=== PATIENT | female | born 1970 | race African-American/Black ===

== ENCOUNTER → 2018-09-05 | Outpatient (CLI) | payer MEDICAID | LOC: BARWHC3 14:08 | DX: Z53.9 Procedure and treatment not carried out, unspecified reason (principal) ==

== ENCOUNTER → 2018-10-09 | Outpatient (CLI) | payer MEDICAID ==
[2018-10-09 17:54] VITALS: BP 123/86; PULSE 85; RESP 16; TEMP 97.6; BMI 41.5
--- NOTE | 2018-10-09 18:47 | P.HPBAR ---
Bariatric H&P - History & Physicial H&P Date: 10/09/18 History & Physicial: Visit/CC: initial visit Patient initial contact: Initial weight: 106.311 kg Initial weight in pounds: 234.38 Height: 5 ft 3 in Initial BMI: 41.5 Last weight: Current weight: 106.311 kg Current weight in pounds: 234.38 Current BMI: 41.5 [place] body weight (based on NIH guidelines): 52.163 kg Excess body weight loss: 0.0% The patient is a 47 year-old F who presents for Bariatric Assessment. HPI: She is looking sleeve gastrectomy. Has GERD. She takes medication Zantac, Omeprazole. Gallbladder is out. Her reflux is bad. She drinks mininum amount of water. Food allergies. No lupus, esophageal cancer, or ulcerative colitis. ABDOMEN: ASSESSMENT: 1. Morbid obesity PLAN: 1. [employer] referral to [facility] 2. Copy of EGD and Colonoscopy report 3. Repeat EGD 4. Get labs at the time of EGD. EKG maybe done that day. 5. Irritable bowel syndrome Past Medical History Past Medical History: GERD/Reflux, Hypertension, Sleep Apnea/CPAP/BIPAP History of Any Multi-Drug Resistant Organisms: None Reported Past Surgical History: Breast Surgery, Section, Cholecystectomy Additional Past Surgical History / Comment(s): breast reduction, c section x 2 Past Anesthesia/Blood Transfusion Reactions: No Reported Reaction Past Psychological History: Anxiety Smoking Status: Never smoker Past Alcohol Use History: None Reported Past Drug Use History: None Reported Surgical - Exam Vital Signs Temp Pulse Resp BP 97.6 F 85 16 123/86 10/09/18 17:52 10/09/18 17:52 10/09/18 17:52 10/09/18 17:52 Bariatric Checklist Checklist: Plan: Checklist: EGD: 1. Hiatal hernia: 2. H. Pylori: HgbA1c: Vitamin D: Smoking: Never smoker Primary care physician referral: Psychiatry clearance: Cardiology clearance: Sleep study: Diet journal: VTE risk score: VTE risk level: Rehab needs at discharge:
== END ==
LOC: BARWHC3 15:51
DX: E66.01 Morbid (severe) obesity due to excess calories (principal); Z68.41 Body mass index [BMI] 40.0-44.9, adult; Z79.899 Other long term (current) drug therapy
CPT/HCPCS: 99211

== ENCOUNTER 2018-12-30 06:31 | Day surgery (SDC) | payer MEDICAID ==
[2018-12-25 15:25] VITALS: BMI 42.1
--- NOTE | 2018-12-29 18:21 | P.GSHP ---
History of Present Illness H&P Date: 12/30/18 CHIEF COMPLAINT: GERD HISTORY OF PRESENT ILLNESS: The patient is a 48-year-old female who presents reports gastroesophageal reflux disease. Upper endoscopy was offered for further evaluation and management. PAST MEDICAL HISTORY: Please see list. PAST SURGICAL HISTORY: Please see list. MEDICATIONS: Please see list. ALLERGIES: Please see list. SOCIAL HISTORY: No illicit drug use FAMILY HISTORY: No reports of Crohn disease or ulcerative colitis. REVIEW OF ORGAN SYSTEMS: CONSTITUTIONAL: No reports of fevers or chills. GI: Denies any blood in stools or constipation. PHYSICAL EXAM: VITAL SIGNS: Stable GENERAL: Well-developed and pleasant in no acute distress. HEENT: No scleral icterus. Extraocular movements grossly intact. Moist buccal mucosa. NECK: Supple without lymphadenopathy. CHEST: Unlabored respirations. Equal bilateral excursions. CARDIOVASCULAR: Regular rate and rhythm. Distal 2+ pulses. ABDOMEN: Soft, nondistended. MUSCULOSKELETAL: No clubbing, cyanosis, or edema. ASSESSMENT: 1. Gastroesophageal reflux disease PLAN: 1. Recommend proceeding with an upper endoscopy Past Medical History Past Medical History: GERD/Reflux, Hypertension, Sleep Apnea/CPAP/BIPAP Additional Past Medical History / Comment(s): HYPOGLYCEMIA. USES C -PAP MACHINE History of Any Multi-Drug Resistant Organisms: None Reported Past Surgical History: Breast Surgery, Section, Cholecystectomy Additional Past Surgical History / Comment(s): breast reduction WITH SOME RECONSTRUCTION AFTER. c section x 2 Past Anesthesia/Blood Transfusion Reactions: No Reported Reaction Additional Past Anesthesia/Blood Transfusion Reaction / Comment(s): VASO VAGAL RESPONSE DURING BREAST RECONSTRUCTION Smoking Status: Never smoker - Past Family History Mother Family Medical History: No Reported History Medications and Allergies Home Medications Medication Instructions Recorded Confirmed Type ALPRAZolam [Xanax] 0.25 mg PO DIRECTED 10/02/18 12/25/18 History Multivitamins, Thera [Multivitamin 1 tab PO DAILY 10/02/18 12/25/18 History (formulary)] Ranitidine HCl 150 mg PO DAILY 10/02/18 12/25/18 History amLODIPine [Norvasc] 5 mg PO DAILY 10/02/18 12/25/18 History Allergies Allergy/AdvReac Type Severity Reaction Status Date / Time sulfamethoxazole Allergy Rash/Hives Verified 12/25/18 15:15 [From Bactrim] trimethoprim [From Bactrim] Allergy Rash/Hives Verified 12/25/18 15:15
[~2018-12-30 06:31] MED LIST: LACTATED RINGERS 1,000 ML IV SCH
[2018-12-30 07:20] VITALS: RESP 16; TEMP 97
[2018-12-30] MEDS ORDERED: LIDOCAINE 1% 20 ML VIAL (10MG/ML) FOR IV START INTRADERMA ONE (07:28)
[2018-12-30] MEDS ORDERED: PROPOFOL 10 MG/ML 20 ML VIAL IV ONE (07:29)
[2018-12-30] MEDS ORDERED: KETAMINE 10 MG/ML 20 ML VIAL ONE (07:29)
--- NOTE | 2018-12-30 07:41 | P.PCN ---
Date of Procedure: 12/30/18 Description of Procedure: PREOPERATIVE DIAGNOSIS: Gastroesophageal reflux disease. Morbid obesity. POSTOPERATIVE DIAGNOSIS: Morbid obesity. Gastritis, mild Gastroesophageal reflux disease. Erosive esophagitis OPERATION: Esophagogastroduodenoscopy with biopsies along antrum. SURGEON: Nicol Gama MD ANESTHESIA: MAC. INDICATIONS: The patient is a 48-year-old female who presents with a history of reflux disease. Benefits and risks of the procedure were described. Informed consent was obtained. DESCRIPTION: The patient was brought into the endoscopy suite and laid in the left lateral decubitus position. An Olympus gastroscope was passed along the posterior oropharynx down to the distal esophagus where the squamocolumnar junction was encountered at 36 cm from the incisors. The stomach was entered and no bile reflux was found. Additional findings are listed below. Biopsies with cold forc eps were obtained of the antrum. The first through third portion of the duodenum was examined and unremarkable. Retroflexion of the scope confirmed Hill grade 2 lower esophageal valve. The squamocolumnar junction demonstrated LA grade A erosive esophagitis. The stomach was desufflated. The patient tolerated the procedure well. FINDINGS: Squamocolumnar junction 36 cm from the incisors. Diaphragmatic hiatus at 36 cm. Hill grade 2 lower esophageal valve. LA grade A erosive esophagitis. No active duodenitis. Mild chronic gastritis RECOMMENDATIONS: Upper endoscopy as needed. Plan - Discharge Summary Discharge Rx Participant: No New Discharge Prescriptions: No Action Multivitamins, Thera [Multivitamin (formulary)] 1 tab PO DAILY amLODIPine [Norvasc] 5 mg PO DAILY Ranitidine HCl 150 mg PO DAILY ALPRAZolam [Xanax] 0.25 mg PO DIRECTED Discharge Medication List ALPRAZolam [Xanax] 0.25 mg PO DIRECTED 10/02/18 [History] Multivitamins, Thera [Multivitamin (formulary)] 1 tab PO DAILY 10/02/18 [History] Ranitidine HCl 150 mg PO DAILY 10/02/18 [History] amLODIPine [Norvasc] 5 mg PO DAILY 10/02/18 [History] Follow up Appointment(s)/Referral(s): [facility] [[facility]-STAFF] - 01/29/19 Patient Instructions/Handouts: Gastroesophageal Reflux Disease (DC) Discharge Disposition: HOME SELF-CARE
--- NOTE | 2018-12-30 08:02 | P.PN ---
Progress Note - Text Progress Note Date: 12/30/18 Patient's reports that she continues to have low blood sugars and is concerned for her having surgery. Will need full bariatric panel.
[2018-12-30 08:03] VITALS: BP 122/88; PULSE 70
[2018-12-30 08:34] LABS: HCT 37.6 % (34.0-46.0); HGB 12.3 gm/dL (11.4-16.0); MCH 29.9 pg (25.0-35.0); MCHC 32.7 g/dL (31.0-37.0); MCV 91.5 fL (80.0-100.0); Mean Platelet Volume 7.4; Platelet Count 252 k/uL (150-450); RBC 4.11 m/uL (3.80-5.40); RDW 13.7 % (11.5-15.5); WBC 4.3 k/uL (3.8-10.6)
[2018-12-30 08:57] LABS: ALT 17 U/L (9-52); AST 21 U/L (14-36); African American GFR (CKD) >90 (>60 ml/min/1.73 sqM); Albumin 3.7 g/dL (3.5-5.0); Alkaline Phosphatase 107 U/L (38-126); Anion Gap 3 mmol/L; Blood Urea Nitrogen 11 mg/dL (7-17); Calcium 9.4 mg/dL (8.4-10.2); Carbon Dioxide 31 mmol/L (22-30); Chloride 108 mmol/L (98-107); Cholesterol 194 mg/dL (<200); Glucose 87 mg/dL (74-99); HDL Cholesterol 77 mg/dL (40-60); LDL Cholesterol,Calculated 105 mg/dL (0-99); Potassium 3.8 mmol/L (3.5-5.1); Sodium 142 mmol/L (137-145); Total Bilirubin 0.4 mg/dL (0.2-1.3); Total Protein 6.4 g/dL (6.3-8.2); Triglycerides 58 mg/dL (<150)
[2018-12-30 18:19] LABS: Iron Saturation 22.26 (12.00-45.00)
[2018-12-30 18:28] LABS: Vitamin D 25 Hydroxy 24.4 ng/mL (30.0-100.0)
[2018-12-30 18:31] LABS: Folate, Serum 13.2 ng/mL
[2018-12-30 19:01] LABS: Hemoglobin A1C 5.7 % (4.0-6.0)
== END 2018-12-30 08:15 | disposition home or self-care (01) ==
LOC: ORWHC2ENDO 06:31
PROVIDERS: ATTEND Surgery Plastic and Reconstructive Surgery
DX: K29.50 Unspecified chronic gastritis without bleeding (principal); K21.9 Gastro-esophageal reflux disease without esophagitis; I10 Essential (primary) hypertension; K22.10 Ulcer of esophagus without bleeding; E66.01 Morbid (severe) obesity due to excess calories; G47.33 Obstructive sleep apnea (adult) (pediatric); Z99.89 Dependence on other enabling machines and devices; Z79.899 Other long term (current) drug therapy; Z90.49 Acquired absence of other specified parts of digestive tract; Z88.2 Allergy status to sulfonamides; Z68.41 Body mass index [BMI] 40.0-44.9, adult
CPT/HCPCS: 88305; 84425; 80061; 80053; 82607; 82728; 82746; 83540; 83550; 84443; 85027; 82306; 83036; 43239; J2704

== ENCOUNTER → 2019-01-29 | Outpatient (CLI) | payer MEDICAID ==
[2019-01-29 17:06] VITALS: BP 156/91; PULSE 85; RESP 16; TEMP 98.1; BMI 41.6
--- NOTE | 2019-01-29 17:26 | P.PN ---
Subjective Progress Note Date: 01/29/19 DATE OF SERVICE: 01/29/2019 CHIEF COMPLAINT: Morbid obesity HISTORY OF PRESENT ILLNESS: Katelyn Finch is a 48-year-old female who comes with lifelong morbid obesity. As a result of her morbid obesity, she developed sleep apnea including hypertensive heart disease. She is completed upper endoscopy. She is looking into the sleeve gastrectomy. She has gastroesophageal reflux disease. She also has history of intermittent low blood sugars. At height of 5 feet 3 inches, her ideal body weight is 140 pounds. She comes in 234 pounds, unchanged since her last visit 4 months ago. Her body mass index is 41.5. She is 94 pounds overweight. PAST MEDICAL HISTORY: 1. Morbid obesity due to excess calories 2. Body mass index of 41.5, initial 3. Anxiety 4. Gastroesophageal reflux disease 5. Obstructive sleep apnea 6. Hypertensive heart disease PAST SURGICAL HISTORY: 1. Breast reduction 2. section x 2 3. Cholecystectomy HOME MEDICATIONS: ALLERGIES: Medications and Allergies Home Medications Medication Instructions Recorded Confirmed Type ALPRAZolam [Xanax] 0.25 mg PO DIRECTED 10/02/18 10/02/18 History Multivitamins, Thera [Multivitamin 1 tab PO DAILY 10/02/18 10/02/18 History (formulary)] Ranitidine HCl 150 mg PO DAILY 10/02/18 10/02/18 History amLODIPine [Norvasc] 5 mg PO DAILY 10/02/18 10/02/18 History Allergies Allergy/AdvReac Type Severity Reaction Status Date / Time sulfamethoxazole Allergy Rash/Hives Verified 10/02/18 15:07 [From Bactrim] trimethoprim [From Bactrim] Allergy Rash/Hives Verified 10/02/18 15:07 SOCIAL HISTORY: No past tobacco use. FAMILY HISTORY: No family history of ulcerative colitis disease or Crohn's disease. Family history of morbid obesity. No lupus in the family. No reports of stomach or esophageal cancer. REVIEW OF ORGAN SYSTEMS: CONSTITUTIONAL: At height of 5 feet 3 inches, her ideal body weight is 140 pounds. She comes in 234 pounds. Her body mass index is 41.5. She is 94 pounds overweight. HEENT: Denies any active troubles with vision or hearing. Has troubles with swallowing. ENDOCRINE: No diabetes. No hypothyroidism. CARDIOVASCULAR: No past reports of palpitations or heart attacks or chest pain. RESPIRATORY: Has daytime somnolence. No asthma. GASTROINTESTINAL: Denies any bright red blood per rectum. No diarrhea. No constipation. MUSCULOSKELETAL: Has lower back pain and joint pain. Has osteoarthritis of the knees. NEURO: No headaches. No seizure disorders. PSYCH: No depression. No suicidal ideation. RHEUMATOLOGIC: No lupus. No rheumatoid arthritis. HEMATOLOGIC: Denies any abnormal bleeding or bruising. No personal history of DVTs. SKIN: No rash. No skin cancer. PHYSICAL EXAM: VITAL SIGNS: Height 5 foot 3 inches, weight 234 pounds. BMI 41.6 Vital Signs Temp 98.1 F 01/29/19 17: Pulse 85 01/29/19 17:01 Resp 16 01/29/19 17: BP 156/91 01/29/19 17:01 Pulse Ox GENERAL: Well-developed in no acute distress. HEENT: No scleral icterus. Extraocular movements grossly intact. Hears conversational speech. No nasal drainage. NECK: Supple without lymphadenopathy. CHEST: Nonlabored respirations with equal bilateral excursions. CARDIOVASCULAR: Regular rate and regular rhythm. Distal 2+ pulses. ABDOMEN: Obese, soft, nontender, nondistended. MUSCULOSKELETAL: No clubbing, cyanosis. Gross strength 5/5 distal lower extremities. NEURO: No focal or lateralizing signs. Cranial nerves 2 through 12 grossly within normal limits. PSYCH: Appropriate affect. Alert and oriented to person, place and time. SKIN: Good skin turgor. Well perfused. EGD FINDINGS: Squamocolumnar junction 36 cm from the incisors. Diaphragmatic hiatus at 36 cm. Hill grade 2 lower esophageal valve. LA grade A erosive esophagitis. No active duodenitis. Mild chronic gastritis Final Pathologic Diagnosis GASTRIC ANTRUM, BIOPSY: Chronic gastritis. Helicobacter organisms are not identified on routine H+E stained sections. EKG FINDINGS: Normal sinus LABS: Vitamin D low 24.4, Hgb A1C 5.7 ASSESSMENT: 1. Morbid obesity due to excess calories 2. Body mass index of 41.6 3. Anxiety 4. Gastroesophageal reflux disease 5. Obstructive sleep apnea 6. Hypertensive heart disease 7. Food allergies 8. Diarrhea with irritable bowel syndrome. PLAN: 1. Bariatric options between a sleeve, band and a Otto-en-Y gastric bypass were reviewed in detail. The patient elected for a sleeve gastrectomy. Robotic assi sted approach described. She was reviewed with the risk of potential increased gastroesophageal reflux disease. 2. The [place] [facility] Data was also reviewed with benefits and risks as described. 3. An 8 page second-generation bariatric consent form was reviewed in detail including potential of bleeding, infection, leaks, adequate weight loss, nutritional deficiencies which the patient demonstrated understanding of the risks. 4. A 2 week high-protein low caloric 800 kcal diet described to address hepatomegaly. 5. Preoperative labs including complete metabolic panel and CBC with type and screen recommended. 6. DVT prophylaxis per [place] [facility]. 7. Antibiotic prophylaxis. 8. Inpatient hospitalization anticipated for more than 2 nights. 9. All questions and concerns were addressed with the patient. 10. As for her troubles with irritable bowel syndrome, fiber intake at least 25 g was reviewed. 11. To address her hypoglycemia, recommend combination fat, carbohydrates including protein intake at least 65 g daily Objective - Vital Signs Vital signs: Vital Signs Temp 98.1 F 01/29/19 17:01 Pulse 85 01/29/19 17:01 Resp 16 01/29/19 17:01 BP 156/91 01/29/19 17:01 Pulse Ox Intake & Output 01/28/19 01/29/19 01/29/19 18:59 06:59 18:59 Weight 106.594 kg
== END | disposition home or self-care (01) ==
LOC: BARWHC3 16:28
PROVIDERS: ATTEND Surgery Plastic and Reconstructive Surgery
DX: E66.01 Morbid (severe) obesity due to excess calories (principal); F41.9 Anxiety disorder, unspecified; K21.9 Gastro-esophageal reflux disease without esophagitis; G47.33 Obstructive sleep apnea (adult) (pediatric); I11.9 Hypertensive heart disease without heart failure; K58.0 Irritable bowel syndrome with diarrhea; Z68.41 Body mass index [BMI] 40.0-44.9, adult; Z90.49 Acquired absence of other specified parts of digestive tract; Z98.890 Other specified postprocedural states; Z79.899 Other long term (current) drug therapy; Z91.018 Allergy to other foods; Z88.2 Allergy status to sulfonamides
CPT/HCPCS: 99211

== ENCOUNTER → 2019-02-24 | Outpatient (CLI) | payer MEDICAID ==
[2019-02-24 09:30] VITALS: BMI 41.6
== END ==
LOC: BARWHC3 08:32
PROVIDERS: ATTEND Surgery Plastic and Reconstructive Surgery
DX: E66.01 Morbid (severe) obesity due to excess calories (principal); Z68.41 Body mass index [BMI] 40.0-44.9, adult
CPT/HCPCS: 97804

== ENCOUNTER → 2019-04-17 | Outpatient (CLI) | payer MEDICAID ==
[2019-04-17 08:40] VITALS: BP 130/87; PULSE 77; RESP 16; TEMP 98.7; BMI 41.6
--- NOTE | 2019-04-17 08:40 | P.PN ---
Subjective Progress Note Date: 04/17/19 HPI: She had an allergic reaction to whey protein and had itching of the throat and troubles with breathing. She saw [facility]. She has completed food allergy testing. ABDOMEN: Unremarkable ASSESSMENT: 1. Morbid obesity 2. Food allergies PLAN: 1. Sleeve consent reviewed 2. New information about Zantac 3. Protein alternative of rice and pea and hemp 4. Four to six weeks of recovery 5. No MVI for 4 weeks
== END ==
LOC: BARWHC3 07:47
PROVIDERS: ATTEND Surgery Plastic and Reconstructive Surgery
DX: E66.01 Morbid (severe) obesity due to excess calories (principal); Z91.018 Allergy to other foods; Z68.41 Body mass index [BMI] 40.0-44.9, adult
CPT/HCPCS: 99211

== ENCOUNTER → 2019-04-26 | Outpatient (CLI) | payer MEDICAID ==
[2019-04-26 11:54] LABS: Basophils % (A) 1 %; Eosinophils # (A) 0.1 k/uL (0-0.7); Eosinophils % (A) 2 %; HCT 42.1 % (34.0-46.0); HGB 13.3 gm/dL (11.4-16.0); Lymphocytes % (A) 38 %; MCHC 31.5 g/dL (31.0-37.0); Mean Platelet Volume 6.4; Monocytes # (A) 0.2 k/uL (0-1.0); Monocytes % (A) 4 %; Neutrophils # (A) 2.8 k/uL (1.3-7.7); Neutrophils % (A) 53 %; Platelet Count 286 k/uL (150-450); RBC 4.43 m/uL (3.80-5.40); RDW 12.9 % (11.5-15.5); WBC 5.3 k/uL (3.8-10.6)
[2019-04-26 12:27] LABS: ALT 20 U/L (9-52); AST 25 U/L (14-36); African American GFR (CKD) >90 (>60 ml/min/1.73 sqM); Alkaline Phosphatase 108 U/L (38-126); Anion Gap 6 mmol/L; Blood Urea Nitrogen 13 mg/dL (7-17); Calcium 9.8 mg/dL (8.4-10.2); Carbon Dioxide 31 mmol/L (22-30); Chloride 105 mmol/L (98-107); Glucose 81 mg/dL (74-99); Potassium 4.1 mmol/L (3.5-5.1); Sodium 142 mmol/L (137-145); Total Bilirubin 0.5 mg/dL (0.2-1.3); Total Protein 7.1 g/dL (6.3-8.2)
== END | disposition home or self-care (01) ==
LOC: LABPAT 10:52
PROVIDERS: ATTEND Surgery Plastic and Reconstructive Surgery
DX: Z01.812 Encounter for preprocedural laboratory examination (principal)
CPT/HCPCS: 36415; 80053; 85025

== ENCOUNTER 2019-05-05 06:28 | Inpatient (IN) | payer MEDICAID ==
--- NOTE | 2019-05-04 20:00 | P.GSHP ---
History of Present Illness H&P Date: 05/05/19 DATE OF SERVICE: 05/05/2019 CHIEF COMPLAINT: Morbid obesity HISTORY OF PRESENT ILLNESS: Katelyn Finch is a 48-year-old female who comes with lifelong morbid obesity. As a result of her morbid obesity, she developed sleep apnea including hypertensive heart disease. She is completed upper endos copy. She is looking into the sleeve gastrectomy. She has gastroesophageal reflux disease. She also has history of intermittent low blood sugars. At height of 5 feet 3 inches, her ideal body weight is 140 pounds. She comes in 234 pounds. Her body mass index is 41.5. She is 94 pounds overweight. PAST MEDICAL HISTORY: 1. Morbid obesity due to excess calories 2. Body mass index of 41.5, initial 3. Anxiety 4. Gastroesophageal reflux disease 5. Obstructive sleep apnea 6. Hypertensive heart disease PAST SURGICAL HISTORY: 1. Breast reduction 2. section x 2 3. Cholecystectomy HOME MEDICATIONS: ALLERGIES: Medications and Allergies Home Medications Medication Instructions Recorded Confirmed Type ALPRAZolam [Xanax] 0.25 mg PO DIRECTED 10/02/18 10/02/18 History Multivitamins, Thera [Multivitamin 1 tab PO DAILY 10/02/18 10/02/18 History (formulary)] Ranitidine HCl 150 mg PO DAILY 10/02/18 10/02/18 History amLODIPine [Norvasc] 5 mg PO DAILY 10/02/18 10/02/18 History Allergies Allergy/AdvReac Type Severity Reaction Status Date / Time sulfamethoxazole Allergy Rash/Hives Verified 10/02/18 15:07 [From Bactrim] trimethoprim [From Bactrim] Allergy Rash/Hives Verified 10/02/18 15:07 SOCIAL HISTORY: No past tobacco use. FAMILY HISTORY: No family history of ulcerative colitis disease or Crohn's disease. Family history of morbid obesity. No lupus in the family. No reports of stomach or esophageal cancer. REVIEW OF ORGAN SYSTEMS: CONSTITUTIONAL: At height of 5 feet 3 inches, her ideal body weight is 140 pounds. She comes in 234 pounds. Her body mass index is 41.5. She is 94 pounds overweight. HEENT: Denies any active troubles with vision or hearing. Has troubles with swallowing. ENDOCRINE: No diabetes. No hypothyroidism. CARDIOVASCULAR: No past reports of palpitations or heart attacks or chest pain. RESPIRATORY: Has daytime somnolence. No asthma. GASTROINTESTINAL: Denies any bright red blood per rectum. No diarrhea. No constipation. MUSCULOSKELETAL: Has lower back pain and joint pain. Has osteoarthritis of the knees. NEURO: No headaches. No seizure disorders. PSYCH: No depression. No suicidal ideation. RHEUMATOLOGIC: No lupus. No rheumatoid arthritis. HEMATOLOGIC: Denies any abnormal bleeding or bruising. No personal history of DVTs. SKIN: No rash. No skin cancer. PHYSICAL EXAM: VITAL SIGNS: Height 5 foot 3 inches, weight 234 pounds. BMI 41.6 GENERAL: Well-developed in no acute distress. HEENT: No scleral icterus. Extraocular movements grossly intact. Hears co nversational speech. No nasal drainage. NECK: Supple without lymphadenopathy. CHEST: Nonlabored respirations with equal bilateral excursions. CARDIOVASCULAR: Regular rate and regular rhythm. Distal 2+ pulses. ABDOMEN: Obese, soft, nontender, nondistended. MUSCULOSKELETAL: No clubbing, cyanosis. Gross strength 5/5 distal lower extremities. NEURO: No focal or lateralizing signs. Cranial nerves 2 through 12 grossly within normal limits. PSYCH: Appropriate affect. Alert and oriented to person, place and time. SKIN: Good skin turgor. Well perfused. ASSESSMENT: 1. Morbid obesity due to excess calories 2. Body mass index of 41.6 3. Anxiety 4. Gastroesophageal reflux disease 5. Obstructive sleep apnea 6. Hypertensive heart disease 7. Food allergies 8. Diarrhea with irritable bowel syndrome. PLAN: 1. Bariatric options between a sleeve, band and a Otto-en-Y gastric bypass were reviewed in detail. The patient elected for a sleeve gastrectomy. Robotic assisted approach described. She was reviewed with the risk of potential increased gastroesophageal reflux disease. 2. The [place] [facility] Data was also reviewed with benefits and risks as described. 3. An 8 page second-generation bariatric consent form was reviewed in detail including potential of bleeding, infection, leaks, adequate weight loss, nutritional deficiencies which the patient demonstrated understanding of the risks. 4. A 2 week high-protein low caloric 800 kcal diet described to address hepatomegaly. 5. Preoperative labs including complete metabolic panel and CBC with type and screen recommended. 6. DVT prophylaxis per [place] [facility]. 7. Antibiotic prophylaxis. 8. Inpatient hospitalization anticipated for more than 2 nights. 9. All questions and concerns were addressed with the patient. 10. As for her troubles with irritable bowel syndrome, fiber intake at least 25 g was reviewed. 11. To address her hypoglycemia, recommend combination fat, carbohydrates including protein intake at least 65 g daily Past Medical History Past Medical History: GERD/Reflux, Hypertension, Sleep Apnea/CPAP/BIPAP Additional Past Medical History / Comment(s): HYPOGLYCEMIA. USES C -PAP MACHINE History of Any Multi-Drug Resistant Organisms: None Reported Past Surgical History: Breast Surgery, Section, Cholecystectomy Additional Past Surgical History / Comment(s): EGD, breast reduction WITH SOME RECONSTRUCTION AFTER. c section x 2 Past Anesthesia/Blood Transfusion Reactions: Previous Problems w/ Anesthesia Additional Past Anesthesia/Blood Transfusion Reaction / Comment(s): VASO VAGAL RESPONSE DURING BREAST RECONSTRUCTION Smoking Status: Never smoker - Past Family History Mother Family Medical History: No Reported History Medications and Allergies Home Medications Medication Instructions Recorded Confirmed Type ALPRAZolam [Xanax] 0.25 mg PO DIRECTED 10/02/18 04/28/19 History amLODIPine [Norvasc] 5 mg PO DAILY 10/02/18 04/28/19 History Biotin 10,000 mcg PO DAILY 02/24/19 04/28/19 History Vitamin C/Biotin [Hair, Skin and 2 tab PO DAILY 02/24/19 04/28/19 History Nails] Womens Ultramega Vitamin 1 tab PO DAILY 02/24/19 04/28/19 History Omeprazole 20 mg PO DAILY 04/28/19 04/28/19 History Allergies Allergy/AdvReac Type Severity Reaction Status Date / Time sulfamethoxazole Allergy Rash/Hives Verified 04/28/19 10:32 [From Bactrim] trimethoprim [From Bactrim] Allergy Rash/Hives Verified 04/28/19 10:32 whey Allergy Itching Verified 04/28/19 10:32
[~2019-05-05 06:28] MED LIST changes: +CHLORHEXIDINE GLUCONATE 15 ML CUP MUCOUS MEM ONE; +DEXAMETHASONE SOD PHOSPHATE 10 MG/ML 1 ML VIAL IV ONE; +ENOXAPARIN 40 MG/0.4 ML SYRINGE SQ STA; +LIDOCAINE 1% 20 ML VIAL (10MG/ML) FOR IV START INTRADERMA PRN; +METOCLOPRAMIDE 5 MG/ML 2 ML VIAL IVP PRN; +ONDANSETRON 4 MG/2 ML VIAL IVP ONE; +PANTOPRAZOLE 40 MG/10 ML VIAL IV STA; +SCOPOLAMINE 1.5MG/72HR PATCH TRANSDERM ONE
[2019-05-05] MEDS ORDERED: MIDAZOLAM 2 MG/2 ML VIAL IV ONE (07:12)
[2019-05-05] MEDS ORDERED: ROCURONIUM BROMIDE 10 MG/ML 10 ML VIAL IV ONE (07:37)
[2019-05-05] MEDS ORDERED: MIDAZOLAM 2 MG/2 ML VIAL ONE (07:37)
[2019-05-05] MEDS ORDERED: fentaNYL (PF) 50 MCG/ML 2 ML AMP ONE (07:37)
[2019-05-05] MEDS ORDERED: ROPIVACAINE 5 MG/ML 30 ML VIAL ONE (07:37)
[2019-05-05] MEDS ORDERED: KETOROLAC 30 MG/ML 1 ML VIAL ONE (07:37)
[2019-05-05] MEDS ORDERED: LIDOCAINE 2%-EPI 1:100,000 20 ML VIAL ONE (07:37)
[2019-05-05] MEDS ORDERED: LIDOCAINE 1% INJ 10MG/ML (20 ML MDV) ONE (07:37)
[2019-05-05] MEDS ORDERED: SUCCINYLCHOLINE CHLORIDE 100 MG/5 ML SYR IV ONE (07:37)
[2019-05-05] MEDS ORDERED: PROPOFOL 10 MG/ML 20 ML VIAL IV ONE (07:37)
[2019-05-05] MEDS ORDERED: PHENYLEPHRINE-0.9% NACL SYG 1 MG/10 ML SYRINGE ONE (07:37)
[2019-05-05] MEDS ORDERED: GLYCOPYRROLATE 0.2 MG/ML 2 ML VIAL ONE (07:37)
[2019-05-05] MEDS ORDERED: NEOSTIGMINE 1 MG/ML 10 ML VIAL ONE (07:37)
[2019-05-05] MEDS ORDERED: BUPIVACAINE (PF) 0.25% 30 ML VIAL SQ ONE (08:08)
[2019-05-05] MEDS ORDERED: LACTATED RINGERS 1,000 ML IV ONE ×2 (08:52→11:02)
[2019-05-05] MEDS ORDERED: NALOXONE 0.4 MG/ML 1 ML VIAL IV PRN (09:50)
[2019-05-05] MEDS ORDERED: diphenhydrAMINE 50 MG/ML 1 ML VIAL IVP PRN (09:50)
[2019-05-05] MEDS ORDERED: ONDANSETRON 4 MG/2 ML VIAL IVP ONE (09:50)
--- NOTE | 2019-05-05 09:50 | P.OP ---
Date of Procedure: 05/05/19 Description of Procedure: SURGEON: OTIS SÁNCHEZ MD PREOPERATIVE DIAGNOSES: 1. Morbid obesity due to excess calories 2. Body mass index of 41.6 3. Anxiety 4. Gastroesophageal reflux disease 5. Obstructive sleep apnea 6. Hypertensive heart disease 7. Food allergies 8. Diarrhea with irritable bowel syndrome. POSTOPERATIVE DIAGNOSES: 1. Morbid obesity due to excess calories 2. Body mass index of 41.6 3. Anxiety 4. Gastroesophageal reflux disease 5. Obstructive sleep apnea 6. Hypertensive heart disease 7. Food allergies 8. Diarrhea with irritable bowel syndrome. 9. Peritoneal adhesions lower midline from prior OPERATION: 1. Robotic assisted daVinci Xi laparoscopic sleeve gastrectomy with 40-Fijian bougie, multiport. 2. Intraoperative esophagogastroduodenoscopy. ANESTHESIA: Gen. local anesthetic ESTIMATED BLOOD LOSS: 5 mL SPECIMENS REMOVED: Sleeve gastrectomy COMPLICATIONS: None. INDICATIONS: Katelyn Finch is a 48-year-old female who comes with lifelong morbid obesity. As a result of her morbid obesity, she developed sleep apnea including hypertensive heart disease. At height of 5 feet 3 inches, her ideal body weight is 140 pounds. She comes in 234 pounds. Her body mass index is 41.5. She is 94 pounds overweight. She comes in for sleeve gastrectomy. All surgical options for morbid obesity had been described using the [place] bariatric surgery collaborative comorbidity resolution including complication risk score. A second-generation bariatric consent form was described in detail including the possibility of protein malnutrition, leaks, gastric stricture, venous thrombosis, gastroesophageal reflux disease, need for further surgery for which she demonstrated understanding. Benefits and risks of the procedure were described at length. Informed consent was obtained. DESCRIPTION: The patient was brought into the operating room theater. Preoperatively she had received Lovenox subcutaneously for DVT prophylaxis. Additionally she had Peridex oral solution as an oral decontaminant. After general induction, the abdomen was prepped and draped in standard sterile fashion. An Ioban draping was placed along the abdomen. Hurt catheter was placed. A robotic da Diane Xi system was prepped and primed. The xiphoid to umbilicus measured 17 cm. At 15 cm from the xiphoid, proposed port sites were marked with indelible marker along the anterior axillary line bilaterally, mid axillary line bilaterally with each ports were marked 10 to 15 cm from each other. The assistant superintendent for curriculum port was marked along the left lateral abdominal wall. The robotic stapler port was marked for the right midclavicular line. A 5 mm 0 degrees laparoscopic trocar entry was performed along the left upper quadrant. The abdomen was insufflated to 15 mmHg pressure he tolerated well. Diagnostic laparoscopy demonstrated no injury to bowel, viscera, or mesentery. The liver surface was unremarkable. The liver edge was crisp consistent with low-carb high-protein diet for 2 weeks. No injury had occurred to the small bowel or viscera. Along the hiatus no evidence of large prominent hiatal hernia was found. A 8 mm port was placed along the right upper abdominal wall after exchanging the 5 mm port. A separate 8 mm port was placed along the left lateral abdominal wall. Please note that the ports were placed at least 20 cm away from the target anatomy. Care was taken to check each robotic arms were safely away from collision with the bed or the patient. At the epigastrium, a median sized [place] liver retractor was placed under direct visualization with the Iron Chief Lock Operator placed under the right shoulder of the patient. Next, 12-mm robot stapler port was placed along the right upper quadrant. The camera 8-mm port was maintained along the epigastrium, The patient was repositioned in reverse Trendelenburg position at 21-degrees after lowering the bed. The robot was docked along the left side of the patient. Using a grasper for arm 4, a vessel sealer for arm 3, including grasper for arm 1, the robotic system was docked and primed as described. Instruments were interchanged by the assistant superintendent for curriculum for stapler loads. The camera was placed at 30-degrees down. I had sat at the console. The pylorus was identified and 6 cm proximally along the greater curvature of the stomach, the short gastrics were mobilized upwards to the angle of His using a vessel sealer. Hemostasis was excellent during this portion of the procedure. Next, the upper pole of the stomach was adherent to the left can, which was gently dissected free using atraumatic grasper. The nursing running rigger placed a 40-Fijian blunted bougie into the stomach. Robotic stapler green loads 60 mm x 1, followed by blue 60 mm x 4 loads were used to create the sleeve. Initial firing was across the antrum of the stomach towards the angle of His. The staple line was completely hemostatic and linear without corkscrewing. Hemostasis was excellent. The space from the angularis incisura of the sleeve was approximately 4 cm. I then went to the head of the bed to perform the intraoperative esophagogastroduodenoscopy leak test. The upper pole of the stomach was bathed using normal saline solution. The scope was withdrawn with careful inspection along the staple line for which no leaks were found along the entire length. Additionally,the sleeve was completely hemostatic without any encroachment along the angularis incisura. Its topology was a soft "J". No stricture was encountered upon placement of the scope. The GI tract was desufflated. The patient tolerated this portion of the procedure well. The scope was completely withdrawn. The robot was undocked. I then rescrubbed into case, whereby the irrigation fluid was aspirated from the abdominal cavity. Tisseel fibrin sealant was placed along the entire staple length. Once dried the [place] liver retractor was removed. Attention was now brought to removal of the specimen. The distal end of the sleeve gastrectomy specimen was brought out through the 12 mm port at the left upper quadrant. The specimen was gently removed en total. No contamination had occurred during this process. All instruments and pneumoperitoneum including irrigation fluid was removed from the abdominal cavity. The 12 mm port site was closed using 0-Vicryl and Reji Christianson and irrigated with diluted hydrogen peroxide. The final incisions were closed using subcuticular interrupted suture of 4-0 Monocryl. Dermabond was applied to the skin once the skin had been cleansed. OptiFoam dressing was placed along the stomach extraction site. At the end of the procedure, needle, sponge, and instrument count was verified correct by the surgical manager. The patient was taken to the postanesthesia care unit in stable condition. She had tolerated the procedure well. Intraoperative films and findings were reviewed with the patient's family. FINDINGS: 1. Negative intraoperative esophagogastrojejunoscopy leak test. 2. No hepatomegaly and no large hiatus hernia. 3. Total of 5 staplers used including 1 - 60 mm green robot hola and 4 - 60 mm blue robot loads used to create the gastric sleeve. 4. Xiphoid to umbilicus of 17 cm. 5. Trocars placed 15 cm from xiphoid process 6. Sleeve gastrectomy 21 x 4 cm 7. Console time 36 minutes
[2019-05-05] MEDS ORDERED: DEXAMETHASONE SOD PHOSPHATE 10 MG/ML 1 ML VIAL IV PRN (09:53)
[2019-05-05] MEDS: HYDROmorphone 0.5 MG/0.5 ML SYRINGE IVP PRN ×4 (09:58→12:21)
[2019-05-05] MEDS ORDERED: diphenhydrAMINE 50 MG/ML 1 ML VIAL IVP ONE (09:59)
[2019-05-05] MEDS ORDERED: PROMETHAZINE INJ 25 MG/ML 1 ML VIAL IVPB ONE (10:11)
[2019-05-05] MEDS: ALBUTEROL NEBULIZED 2.5 MG/3 ML INHALATION SCH ×3 (11:38→19:13)
[2019-05-05] MEDS: HYOSCYAMINE ORAL DROPS 1.875 MG/15 ML BOTTLE PO SCH ×2 (13:58→17:37)
[2019-05-05] MEDS: SIMETHICONE 40 MG/0.6 ML DROPS 2,000 MG/30 ML BOTTLE PO SCH ×2 (14:00→17:39)
[2019-05-05] MEDS: DEXAMETHASONE SOD PHOSPHATE 4 MG/ML 1 ML VIAL IV SCH ×2 (14:10→20:12)
[2019-05-05] MEDS: METOCLOPRAMIDE 5 MG/ML 2 ML VIAL IVP SCH ×2 (14:10→22:34)
[2019-05-05] MEDS: ACETAMINOPHEN IV (For NPO) 1,000 MG in EMPTY BAG 1 BAG IVPB SCH ×3 (14:11→22:38)
[2019-05-05] MEDS: HYDROmorphone 1 MG/ML 1 ML SYRINGE IVP PRN ×2 (17:44→22:05)
[2019-05-05] MEDS: 0.9% NACL WITH KCL 20 MEQ/L 1,000 ML IV SCH ×2 (17:48→20:11)
[2019-05-05] MEDS ORDERED: ONDANSETRON 4 MG/2 ML VIAL IVP PRN (18:37)
--- NOTE | 2019-05-05 19:24 | P.ANPRN ---
Procedure Note - Anesthesia - Nerve Block Performed Bilateral Transversus Abdominis Single Time Out Performed: Yes Date of Procedure: 05/05/19 Procedure Start Time: :13 Procedure Stop Time: : Location of Patient Procedure: PreOp Indication: Acute Post-Operative Pain, Requested by Surgeon Sedation Type: Sedate with meaningful contact maintained Preparation: Sterile Prep Position: Supine Needle Types: Pajunk Needle Gauge: 21 Ultrasound used to visualize needle placement: Yes Ultrasound used to observe medication spread: Yes Blood Aspirated: No Pain Paresthesia on Injection Noted: No Resistance on Injection: Normal Image Stored and Saved: Yes Events: Uneventful and Well Tolerated (ropi .5% 15cc plus xylo 2% with epi)
[2019-05-05] MEDS: KETOROLAC 30 MG/ML 1 ML VIAL IVP SCH ×2 (22:31→22:32)
[2019-05-06] MEDS: 0.9% NACL WITH KCL 20 MEQ/L 1,000 ML IV SCH ×4 (01:49→18:08)
[2019-05-06] MEDS: DEXAMETHASONE SOD PHOSPHATE 4 MG/ML 1 ML VIAL IV SCH ×4 (01:51→17:31)
[2019-05-06] MEDS: SIMETHICONE 40 MG/0.6 ML DROPS 2,000 MG/30 ML BOTTLE PO SCH ×4 (01:56→17:34)
[2019-05-06] MEDS: HYOSCYAMINE ORAL DROPS 1.875 MG/15 ML BOTTLE PO SCH ×4 (01:57→17:33)
[2019-05-06] MEDS: METOCLOPRAMIDE 5 MG/ML 2 ML VIAL IVP SCH ×3 (04:09→14:43)
[2019-05-06] MEDS: ACETAMINOPHEN IV (For NPO) 1,000 MG in EMPTY BAG 1 BAG IVPB SCH ×2 (04:14→07:38)
[2019-05-06 06:50] LABS: Basophils % (A) 0 %; Eosinophils % (A) 1 %; HCT 37.4 % (34.0-46.0); Lymphocytes # (A) 0.9 k/uL (1.0-4.8); Lymphocytes % (A) 15 %; MCH 29.7 pg (25.0-35.0); MCV 92.8 fL (80.0-100.0); Mean Platelet Volume 6.5; Monocytes # (A) 0.2 k/uL (0-1.0); Monocytes % (A) 3 %; Neutrophils # (A) 4.8 k/uL (1.3-7.7); Neutrophils % (A) 81 %; Platelet Count 242 k/uL (150-450); RBC 4.03 m/uL (3.80-5.40); RDW 12.9 % (11.5-15.5); WBC 5.9 k/uL (3.8-10.6)
[2019-05-06 07:01] LABS: African American GFR (CKD) >90 (>60 ml/min/1.73 sqM); Anion Gap 7 mmol/L; Blood Urea Nitrogen 10 mg/dL (7-17); Carbon Dioxide 27 mmol/L (22-30); Chloride 104 mmol/L (98-107); Magnesium 2.3 mg/dL (1.6-2.3); Phosphorus 3.6 mg/dL (2.5-4.5); Sodium 138 mmol/L (137-145)
[2019-05-06] MEDS: ALBUTEROL NEBULIZED 2.5 MG/3 ML INHALATION SCH ×4 (08:22→20:12)
[2019-05-06] MEDS: HYDROmorphone 1 MG/ML 1 ML SYRINGE IVP PRN ×2 (08:35→15:19)
[2019-05-06] MEDS ORDERED: amLODIPine 5 MG TAB PO SCH (09:00)
[2019-05-06] MEDS ORDERED: ENOXAPARIN 40 MG/0.4 ML SYRINGE SQ SCH (09:00)
[2019-05-06] MEDS ORDERED: PANTOPRAZOLE 40 MG/10 ML VIAL IV SCH (09:00)
[2019-05-06] MEDS ORDERED: ACETAMINOPHEN ORAL SUSP 160 MG/5 ML CUP PO PRN (11:50)
--- NOTE | 2019-05-06 11:57 | FL ---
EXAMINATION TYPE: FL UGI DATE OF EXAM: 05/06/2019 COMPARISON: NONE HISTORY: Postop bariatric surgery, gastric sleeve TECHNIQUE: A angle contrast UGI study is performed. FINDINGS: 1 minute fluoroscopy time, 5 intraoperative images obtained. Patient was evaluated followin g injection of 20 cc Isovue-370 and evaluation of the gastroesophageal junction. There is no obstruct ion to flow to the level of the distal aspect of the gastric sleeve. There is a pouch noted near the gastroesophageal junction, contrast column is narrow compatible with gastric sleeve but courses to ap proximately the midline. Suture material noted along the region of the stomach. IMPRESSION: Mild obstruction is present. Contrast noted to the level of the midline.
--- NOTE | 2019-05-06 12:26 | P.PN ---
<Aaliyah Stephens Kay - Last Filed: 05/06/19 12:27> Subjective Progress Note Date: 05/06/19 CHIEF COMPLAINT: Morbid obesity HISTORY OF PRESENT ILLNESS: 48 year old female who is status post robotic- assisted laparoscopic sleeve gastrectomy. Postop day #1. Esophagram completed postoperatively negative for leak. Reports mild obstruction. Patient has been tolerating clear liquids. Pain is controlled with current regimen. Denies nausea or vomiting. Patient reports she has been up ambulating in the hallway. She is passing flatus. Voiding without difficulty. Vital signs stable. She is afebrile. PHYSICAL EXAM: VITAL SIGNS: Currently stable. GENERAL: Well-developed in no acute distress. HEENT: No sclera icterus. Extraocular movements grossly intact. Moist buccal mucosa. Head is atraumatic, normocephalic. Hears conversational speech. No nasal d rainage. NECK: Supple without lymphadenopathy. CHEST: Non-labored respirations and equal bilateral excursions. CARDIOVASCULAR: Regular rate with regular rhythm. Palpable 2+ radial pulses. ABDOMEN: Soft. Nondistended. Surgical incision sites clean dry and intact. MUSCULOSKELETAL: No clubbing, cyanosis or edema. NEUROLOGIC: No focal or lateralizing signs. Cranial nerves II through XII herbert ssly intact. PSYCH: Appropriate affect. Alert and oriented to person, place and time. SKIN: Well perfused. Good skin turgor. ASSESSMENT: 1. Morbid obesity due to excess calories 2. Body mass index of 41.6 3. Anxiety 4. Gastroesophageal reflux disease 5. Obstructive sleep apnea 6. Hypertensive heart disease 7. Food allergies 8. Diarrhea with irritable bowel syndrome. 9. Peritoneal adhesions lower midline from prior PLAN: 1. Continue bariatric clear liquid diet. No straws or carbonated beverages. 2. Increase activity as tolerated 3. Incentive spirometer 4. Pain control 5. Anticipate discharge home this afternoon. Nurse practitioner note has been reviewed by physician. Signing provider agrees with the documented findings, assessment, and plan of care. Objective - Vital Signs Vital signs: Vital Signs Temp 97.8 F 05/06/19 07:15 Pulse 68 05/06/19 11:56 Resp 16 05/06/19 07:15 BP 134/79 05/06/19 07:15 Pulse Ox 99 05/06/19 08:22 Intake & Output 05/05/19 05/06/19 05/06/19 18:59 06:59 18:59 Intake Total 1550 Output Total 855 600 Balance 695 -600 Intake: IV 1550 Output: Urine 850 600 Estimated Blood Loss 5 Other: Voiding Method Toilet # Voids 1 1 - Labs CBC & Chem 7: 05/06/19 06:17 05/06/19 06:17 Labs: Abnormal Lab Results - Last 24 Hours (Table) 05/06/19 Range/Units 06:17 Lymphocytes # 0.9 L (1.0-4.8) k/uL Assessment and Plan (1) Morbid obesity Status: Acute Code(s): E66.01 - MORBID (SEVERE) OBESITY DUE TO EXCESS CALORIES SNOMED Code(s): 098216446 <NatanNicol N - Last Filed: 05/06/19 22:54> Subjective She is doing well this evening. No nausea or vomiting. Pain is controlled. Discharge instructions reviewed including post-op bariatric instructions. Patient is cleared for discharge. Objective - Vital Signs Vital signs: Vital Signs Temp 98.3 F 05/06/19 19:12 Pulse 85 05/06/19 19:12 Resp 18 05/06/19 19:12 BP 150/89 05/06/19 19:12 Pulse Ox 99 05/06/19 19:12 Intake & Output 05/06/19 05/06/19 05/07/19 06:59 18:59 06:59 Intake Total 1380 Output Total 600 Balance 780 Weight 106.594 kg Intake: Intake, IV Titration 950 Amount 0.9% NaCl with KCl 20 Meq 900 /l 1,000 ml @ 100 mls/hr IV .Q10H NATHANAEL Rx#: [id number] ceFAZolin 2 gm In Sodium 50 Chloride 0.9% 50 ml @ 100 mls/hr IVPB Q8HR NATHANAEL Rx# :[id number] Oral 430 Output: Urine 600 Other: Voiding Method Toilet # Voids 1 1 - Labs CBC & Chem 7: 05/06/19 06:17 05/06/19 06:17 Labs: Abnormal Lab Results - Last 24 Hours (Table) 05/06/19 Range/Units 06:17 Lymphocytes # 0.9 L (1.0-4.8) k/uL
[2019-05-06 15:34] VITALS: BMI 41.6
[2019-05-06 19:14] VITALS: BP 150/89; PULSE 85; RESP 18; TEMP 98.3
[2019-05-07] MEDS ORDERED: BISACODYL 5 MG TABLET.DR PO PRN (08:00)
--- NOTE | 2019-05-07 09:03 | P.DS ---
Providers Date of admission: 05/05/19 06:28 Expected date of discharge: 05/06/19 Attending physician: Nicol Gama Primary care physician: Patsy Castro MD Hospital Course: POSTOPERATIVE DIAGNOSES: 1. Morbid obesity due to excess calories 2. Body mass index of 41.6 3. Anxiety 4. Gastroesophageal reflux disease 5. Obstructive sleep apnea 6. Hypertensive heart disease 7. Food allergies 8. Diarrhea with irritable bowel syndrome. 9. Peritoneal adhesions lower midline from prior COURSE: Katelyn Finch is a 48-year-old female who comes with lifelong morbid obesity. As a result of her morbid obesity, she developed sleep apnea including hypertensive heart disease. At height of 5 feet 3 inches, her ideal body weight is 140 pounds. She comes in 234 pounds. Her body mass index is 41.5. She is 94 pounds overweight. She underwent sleeve gastrectomy without sequelae. Post procedure, she was tolerating liquids. Bariatric discharge instructions were reviewed. Medical reconciliation was performed. I personally contacted the patient's local pharmacy to arrange for availability of her medications. Follow up in the bariatric center in 2-4 days. Pertinent Studies: Esophagram demonstrated no leak Procedures: OPERATION: 1. Robotic assisted daVinci Xi laparoscopic sleeve gastrectomy with 40-[place]izen [place] bougie, multiport. 2. Intraoperative esophagogastroduodenoscopy. ANESTHESIA: Gen. local anesthetic ESTIMATED BLOOD LOSS: 5 mL SPECIMENS REMOVED: Sleeve gastrectomy COMPLICATIONS: None. Patient Condition at Discharge: Stable Plan - Discharge Summary Discharge Rx Participant: Yes New Discharge Prescriptions: New Bisacodyl [Dulcolax] 5 mg PO DAILY PRN #10 tablet.dr PRN Reason: Constipation Simethicone 40 mg/0.6 ml Drops [Mylicon Drops] 40 mg PO PCHS PRN #30 ml PRN Reason: gas Omeprazole 40 mg PO DAILY #30 cap Ondansetron Odt [Zofran Odt] 4 mg PO Q8HR PRN #9 tab PRN Reason: Nausea Acetaminophen Oral Susp [Tylenol Oral Susp] 650 mg PO Q4H PRN #200 ml PRN Reason: Pain HYDROcodone/APAP 5-325MG [[place] 5-325] 1 tab PO Q4HR PRN 3 Days #18 tab PRN Reason: Pain Continue amLODIPine [Norvasc] 5 mg PO DAILY Discontinued ALPRAZolam [Xanax] 0.25 mg PO DIRECTED Vitamin C/Biotin [Hair, Skin and Nails] 2 tab PO DAILY Womens Ultramega Vitamin 1 tab PO DAILY Biotin 10,000 mcg PO DAILY Omeprazole 20 mg PO DAILY Discharge Medication List amLODIPine [Norvasc] 5 mg PO DAILY 10/02/18 [History] Acetaminophen Oral Susp [Tylenol Oral Susp] 650 mg PO Q4H PRN #200 ml 05/06/19 [Rx] Bisacodyl [Dulcolax] 5 mg PO DAILY PRN #10 tablet. 05/06/19 [Rx] HYDROcodone/APAP 5-325MG [[place] 5-325] 1 tab PO Q4HR PRN 3 Days #18 tab 05/06/19 [Rx] Omeprazole 40 mg PO DAILY #30 cap 05/06/19 [Rx] Ondansetron Odt [Zofran Odt] 4 mg PO Q8HR PRN #9 tab 05/06/19 [Rx] Simethicone 40 mg/0.6 ml Drops [Mylicon Drops] 40 mg PO PCHS PRN #30 ml 05/06/19 [Rx] Follow up [facility]ment(s[facility] [place] [facility] [place] [facility] Patient Instructions/Handouts: Nutrition after Bariatric Surgery (DC), Laparoscopic Sleeve Gastrectomy (DC) Activity/Diet/Wound Care/Special Instructions: Continue clear liquids. No straws or carbonated beverages No lifting over 4 pounds You may shower. No soaking or tub baths Very light activity until you are reevaluated at your follow up appointment with your surgeon Follow-up at the bariatric center. Check blood sugars at least twice daily. Hold diabetic medications of blood sugar is less than 150. Dressings to be discontinued by surgeon in the office. NO lifting over 4 pounds in 4 weeks, June 05. May shower. No bathtub soaks. Drink 64 oz of fluid daily. Notify bariatric center for temp over 101.0, increased pain, drainage from incisions. No straws or carbonated beverages. Liquid diet only. Sugar content should be less than 6 g to avoid dumping syndrome. Take MOM for constipation. Discharge Disposition: HOME SELF-CARE
== END 2019-05-06 21:05 | disposition home or self-care (01) | DRG 621 ==
LOC: 2ORMAIN 06:28 → 4SSUR 13:26
PROVIDERS: ADMIT Surgery Plastic and Reconstructive Surgery; ATTEND Surgery Plastic and Reconstructive Surgery
PROC: 0DJ08ZZ Inspection of Upper Intestinal Tract, Via Natural or Artificial Opening Endoscopic (ICD-10-PCS; principal; 2019-05-05 07:45)
PROC: 8E0W4CZ Robotic Assisted Procedure of Trunk Region, Percutaneous Endoscopic Approach (ICD-10-PCS; principal; 2019-05-05 07:45)
PROC: 0DB64Z3 Excision of Stomach, Percutaneous Endoscopic Approach, Vertical (ICD-10-PCS; principal; 2019-05-05 07:45)
DX: E66.01 Morbid (severe) obesity due to excess calories (principal); E16.2 Hypoglycemia, unspecified; F41.9 Anxiety disorder, unspecified; G47.33 Obstructive sleep apnea (adult) (pediatric); I11.9 Hypertensive heart disease without heart failure; K21.9 Gastro-esophageal reflux disease without esophagitis; K58.0 Irritable bowel syndrome with diarrhea; R16.0 Hepatomegaly, not elsewhere classified; K29.50 Unspecified chronic gastritis without bleeding; K66.0 Peritoneal adhesions (postprocedural) (postinfection); Z68.41 Body mass index [BMI] 40.0-44.9, adult; Z79.899 Other long term (current) drug therapy; Z98.891 History of uterine scar from previous surgery; Z90.49 Acquired absence of other specified parts of digestive tract; Z98.890 Other specified postprocedural states; Z88.2 Allergy status to sulfonamides; Z91.018 Allergy to other foods; Z99.89 Dependence on other enabling machines and devices
CPT/HCPCS: 64488; 74240; 80051; 81025; 82310; 82565; 83735; 84100; 84520; 85025; 86850; 86900; 86901; 88307; 94640

== ENCOUNTER → 2019-05-09 | Outpatient (CLI) | payer MEDICAID ==
[2019-05-09 10:45] VITALS: BP 146/88; PULSE 87; RESP 16; TEMP 98.4; BMI 40.4
--- NOTE | 2019-05-09 11:29 | P.PN ---
Subjective Progress Note Date: 05/09/19 DATE OF SERVICE: 05/09/2019 CHIEF COMPLAINT: Morbid obesity HISTORY OF PRESENT ILLNESS: Katelyn Finch is a 48-year-old female who is status post sleeve gastrectomy 05/05/2019. She is POD 4. She has trouble with her incision for pain. No gastroesophageal reflux disease. No nausea or vomiting. At height of 5 feet 3 inches, her ideal body weight is 140 pounds. She comes in 228 pounds from 235 pounds, 3 weeks ago. She has lost 7 pounds in 3 weeks. Her body mass index is down from 41.5 to 40.4. She lost 7 pounds in 3 weeks. Her percent excess weight loss is 7%. PHYSICAL EXAM: VITAL SIGNS: Height 5 foot 3 inches, weight 228 pounds. BMI 40.4 Vital Signs Temp 98.4 F 05/09/19 10:42 Pulse 87 05/09/19 10:42 Resp 16 05/09/19 10:42 BP 146/88 05/09/19 10:42 Pulse Ox GENERAL: Well-developed in no acute distress. HEENT: No scleral icterus. Extraocular movements grossly intact. Hears conversational speech. No nasal drainage. NECK: Supple without lymphadenopathy. CHEST: Nonlabored respirations with equal bilateral excursions. CARDIOVASCULAR: Regular rate and regular rhythm. Distal 2+ pulses. ABDOMEN: No infection. No cellulitis. MUSCULOSKELETAL: No clubbing, cyanosis. Gross strength 5/5 distal lower extremities. NEURO: No focal or lateralizing signs. Cranial nerves 2 through 12 grossly within normal limits. PSYCH: Appropriate affect. Alert and oriented to person, place and time. SKIN: Good skin turgor. Well perfused. ASSESSMENT: 1. Morbid obesity due to excess calories 2. Body mass index of 41.6 3. Anxiety 4. Gastroesophageal reflux disease 5. Obstructive sleep apnea 6. Hypertensive heart disease 7. Food allergies 8. Diarrhea with irritable bowel syndrome. 9. Status post sleeve gastrectomy. PLAN: 1. I have adjusted her omeprazole to 20 mg BID for 2 weeks. 2. Recommend stay hydrated at least 64 ounces daily 3. Follow up in 2 weeks. Objective - Vital Signs Vital signs: Vital Signs Temp 98.4 F 05/09/19 10:42 Pulse 87 05/09/19 10:42 Resp 16 05/09/19 10:42 BP 146/88 05/09/19 10:42 Pulse Ox Intake & Output 05/08/19 05/09/19 05/09/19 18:59 06:59 18:59 Weight 103.419 kg
== END | disposition home or self-care (01) ==
LOC: BARWHC3 09:55
PROVIDERS: ATTEND Surgery Plastic and Reconstructive Surgery
DX: E66.01 Morbid (severe) obesity due to excess calories (principal); F41.9 Anxiety disorder, unspecified; K21.9 Gastro-esophageal reflux disease without esophagitis; G47.33 Obstructive sleep apnea (adult) (pediatric); I11.9 Hypertensive heart disease without heart failure; L27.2 Dermatitis due to ingested food; K58.0 Irritable bowel syndrome with diarrhea; Z68.41 Body mass index [BMI] 40.0-44.9, adult; Z98.84 Bariatric surgery status
CPT/HCPCS: 99211

== ENCOUNTER → 2019-05-21 | Outpatient (CLI) | payer MEDICAID ==
[2019-05-21 16:28] VITALS: BP 125/80; TEMP 98.6; BMI 38.9
--- NOTE | 2019-05-21 16:42 | P.PN ---
Subjective Principal diagnosis: No GERD. She reports occasional hypoglycemia. She is getting over 100 g protein daily. She is off all blood pressure medications. She reports fluid is occasional low. She wants to get down 160 pounds for weight loss. She has an auto CPAP machine. Blood work on next visit. Objective - Vital Signs Vital signs: Vital Signs Temp 98.6 F 05/21/19 16:26 Pulse Resp BP 125/80 05/21/19 16:26 Pulse Ox Intake & Output 05/20/19 05/21/19 05/21/19 18:59 06:59 18:59 Weight 99.654 kg
== END | disposition home or self-care (01) ==
LOC: BARWHC3 14:54
PROVIDERS: ATTEND Surgery Plastic and Reconstructive Surgery
DX: E66.01 Morbid (severe) obesity due to excess calories (principal); R73.9 Hyperglycemia, unspecified; Z68.38 Body mass index [BMI] 38.0-38.9, adult; Z99.89 Dependence on other enabling machines and devices
CPT/HCPCS: 97803; 99211

== ENCOUNTER → 2019-06-04 | Outpatient (CLI) | payer MEDICAID ==
[2019-06-04 13:33] VITALS: PULSE 81; TEMP 98.9; BMI 38.0
[2019-06-04 13:42] VITALS: BP 133/89
--- NOTE | 2019-06-04 13:46 | P.PN ---
Subjective Progress Note Date: 06/04/19 She reports no GERD. She is losing weight. Take probiotic. MVI ok. ABDOMEN: No hernia ASSESSMENT: 1. S/p Sleeve PLAN: 1. Labs Objective - Vital Signs Vital signs: Vital Signs Temp 98.9 F 06/04/19 13:29 Pulse 81 06/04/19 13:39 Resp BP 133/89 06/04/19 13:39 Pulse Ox Intake & Output 06/03/19 06/04/19 06/04/19 18:59 06:59 18:59 Weight 97.568 kg
== END | disposition home or self-care (01) ==
LOC: BARWHC3 12:27
PROVIDERS: ATTEND Surgery Plastic and Reconstructive Surgery
DX: Z48.815 Encounter for surgical aftercare following surgery on the digestive system (principal); Z98.84 Bariatric surgery status
CPT/HCPCS: 99211

== ENCOUNTER → 2019-06-04 | Outpatient (CLI) | payer MEDICAID ==
[2019-06-04 13:30] LABS: HGB 13.3 gm/dL (11.4-16.0); MCH 30.3 pg (25.0-35.0); MCHC 33.1 g/dL (31.0-37.0); MCV 91.5 fL (80.0-100.0); Mean Platelet Volume 6.2; Platelet Count 240 k/uL (150-450); RBC 4.37 m/uL (3.80-5.40); RDW 12.9 % (11.5-15.5); WBC 5.2 k/uL (3.8-10.6)
[2019-06-04 13:42] LABS: Prothrombin Time 10.6 sec (9.0-12.0)
[2019-06-04 18:32] LABS: % Iron Saturation 12.17 (12.00-45.00); African American GFR (CKD) 102.5 (60.0-200.0); Albumin 4.3 g/dL (3.80-4.90); Albumin/Globulin Ratio 1.95 (1.60-3.17); BUN/Creat Ratio 22.5 Ratio (12.00-20.00); Calcium 9.6 mg/dL (8.7-10.3); Chol/HDL Ratio 3.04; Globulin 2.2 g/dL (1.6-3.3); Magnesium 2.2 mg/dL (1.5-2.4); Potassium 3.9 mmol/L (3.5-5.5); Total Bilirubin 0.5 mg/dL (0.3-1.2); Total Protein 6.5 g/dL (6.2-8.2)
[2019-06-04 18:38] LABS: Ferritin 130.8 ng/mL (10.0-291.0)
[2019-06-04 18:45] LABS: Folate, Serum 12.5 ng/mL
[2019-06-05 12:22] LABS: Zinc, Serum 70 ug/dL (60-130)
[2019-06-05 13:41] LABS: Vitamin A 30 ug/dL (38-106)
[2019-06-06 09:51] LABS: Vit B1(Thiamine) 47 ug/L (38-122)
== END | disposition home or self-care (01) ==
LOC: LABWHC1 12:42
PROVIDERS: ATTEND Surgery Plastic and Reconstructive Surgery
DX: E21.1 Secondary hyperparathyroidism, not elsewhere classified (principal); D50.9 Iron deficiency anemia, unspecified; K90.9 Intestinal malabsorption, unspecified; E55.9 Vitamin D deficiency, unspecified; K74.1 Hepatic sclerosis; N19 Unspecified kidney failure; K50.90 Crohn's disease, unspecified, without complications; K90.89 Other intestinal malabsorption
CPT/HCPCS: 36415; 80053; 80061; 82306; 82525; 82607; 82728; 82746; 83036; 83540; 83550; 83735; 83970; 84100; 84134; 84255; 84425; 84443; 84590; 84630; 85027; 85610; 85730

== ENCOUNTER → 2019-08-27 | Outpatient (CLI) | payer MEDICAID ==
--- NOTE | 2019-08-27 15:30 | P.PN ---
Subjective Progress Note Date: 08/27/19 DATE OF SERVICE: 08/27/2019 CHIEF COMPLAINT: Status post sleeve gastrectomy HISTORY OF PRESENT ILLNESS: Katelyn Finch is a 48-year-old female who is status post sleeve gastrectomy 05/05/2019. She is 4 months out. She denies any abdominal pain. No reports of gastroesophageal reflux disease. She is taking her multivitamin. She has a milk allergy. Protein intake is over 70 grams daily. At height of 5 feet 3 inches, her ideal body weight is 140 pounds. She comes in 193 pounds from 215 pounds, 3 months ago. She has lost 22 pounds in 3 months. Her body mass index is down from 41.7 to 34.2. Lifetime weight loss is 42 pounds. Her lifetime percent excess weight loss is 45 %. PHYSICAL EXAM: VITAL SIGNS: Height 5 foot 3 inches, weight 193 pounds. BMI 34.2 Vital Signs Temp 97.8 F 08/27/19 16:24 Pulse 87 08/27/19 16:24 Resp BP 138/86 08/27/19 16:24 Pulse Ox GENERAL: Well-developed in no acute distress. HEENT: No scleral icterus. Extraocular movements grossly intact. Hears conversational speech. No nasal drainage. NECK: Supple without lymphadenopathy. CHEST: Nonlabored respirations with equal bilateral excursions. CARDIOVASCULAR: Regular rate and regular rhythm. Distal 2+ pulses. ABDOMEN: Soft, nontender. No hernia. MUSCULOSKELETAL: No clubbing, cyanosis. NEURO: No focal or lateralizing signs. Cranial nerves 2 through 12 grossly within normal limits. PSYCH: Appropriate affect. Alert and oriented to person, place and time. SKIN: Good skin turgor. Well perfused. ASSESSMENT: 1. Morbid obesity due to excess calories 2. Body mass index of 41.7 to 34.2 3. Anxiety 4. Gastroesophageal reflux disease 5. Obstructive sleep apnea 6. Hypertensive heart disease 7. Food allergies 8. Diarrhea with irritable bowel syndrome. 9. Status post sleeve gastrectomy. PLAN: 1. Recommend stop Omeprazole 2. Recommend bariatric labs. 3. MBSC calculator was reviewed 4. Recommend [facility] for calorie counting. Laboratory Last Values WBC 5.6 k/uL (3.8-10.6) 08/27/19 16:52 RBC 4.33 m/uL (3.80-5.40) 08/27/19 16:52 Hgb 13.3 gm/dL (11.4-16.0) 08/27/19 16:52 Hct 41.2 % (34.0-46.0) 08/27/19 16:52 MCV 95.3 fL (80.0-100.0) 08/27/19 16:52 MCH 30.8 pg (25.0-35.0) 08/27/19 16:52 MCHC 32.4 g/dL (31.0-37.0) 08/27/19 16:52 RDW 12.9 % (11.5-15.5) 08/27/19 16:52 Plt Count 243 k/uL (150-450) 08/27/19 16:52 Hypochromasia Slight 08/27/19 16:52 PT 9.8 sec (9.0-12.0) 08/27/19 16:52 INR 0.9 (<1.2) 08/27/19 16:52 APTT 24.6 sec (22.0-30.0) 08/27/19 16:52 Sodium 143 mmol/L (135-145) 08/27/19 16:52 Potassium 3.5 mmol/L (3.5-5.5) 08/27/19 16:52 Chloride 107 mmol/L (96-109) 08/27/19 16:52 Carbon Dioxide 27.5 mmol/L (21.6-31.8) 08/27/19 16:52 Anion Gap 8.50 mmol/L (4.00-12.00) 08/27/19 16:52 BUN 13.0 mg/dL (9.0-27.0) 08/27/19 16:52 Creatinine 0.8 mg/dL (0.6-1.5) 08/27/19 16:52 Est GFR (CKD-EPI)AfAm 102.5 (60.0-200.0) 08/27/19 16:52 Est GFR (CKD-EPI)NonAf 88.4 (60.0-200.0) 08/27/19 16:52 BUN/Creatinine Ratio 16.25 Ratio (12.00-20.00) 08/27/19 16:52 Glucose 103 mg/dL (70-110) 08/27/19 16:[address] Glu mg/dL 103 08/27/19 16:52 Hemoglobin A1c 5.2 % (4.0-6.0) 08/27/19 16:52 Calcium 9.2 mg/dL (8.7-10.3) 08/27/19 16:52 Phosphorus 3.6 mg/dL (2.4-5.1) 08/27/19 16:52 Magnesium 2.4 mg/dL (1.5-2.4) 08/27/19 16:52 Iron 75 ug/dL (50-170) 08/27/19 16:52 TIBC 345 ug/dL (228-460) 08/27/19 16:52 % Saturation 21.74 (12.00-45.00) 08/27/19 16:52 Ferritin 123.2 ng/mL (10.0-291.0) 08/27/19 16:52 Total Bilirubin 0.5 mg/dL (0.3-1.2) 08/27/19 16:52 AST 26 U/L (13-35) 08/27/19 16:52 ALT 16 U/L (8-44) 08/27/19 16:52 Alkaline Phosphatase 104 U/L (41-126) 08/27/19 16:52 Total Protein 6.5 g/dL (6.2-8.2) 08/27/19 16:52 Albumin 4.50 g/dL (3.80-4.90) 08/27/19 16:52 Globulin 2.0 g/dL (1.6-3.3) 08/27/19 16:52 Albumin/Globulin Ratio 2.25 g/dL (1.60-3.17) 08/27/19 16:52 Prealbumin 17.0 mg/dL (18.0-42.0) L 08/27/19 16:52 Triglycerides 64.0 mg/dL (0.0-149.0) 08/27/19 16:52 Cholesterol 197 mg/dL (0-200) 08/27/19 16:52 LDL Cholesterol, Calc 95.2 mg/dL (0.0-131.0) 08/27/19 16:52 VLDL Cholesterol, Calc 12.80 mg/dL (5.00-40.00) 08/27/19 16:52 HDL Cholesterol 89.0 mg/dL (40.0-60.0) H 08/27/19 16:52 Cholesterol/HDL Ratio 2.21 08/27/19 16:52 Vitamin A 34 ug/dL (38-106) L 08/27/19 16:52 Vitamin B1 59 ug/L (38-122) 08/27/19 16:52 Vitamin B12 >4000.0 pg/mL (211-911) H 08/27/19 16:52 Vitamin D 25-Hydroxy 23.2 ng/mL (30.0-100.0) L 08/27/19 16:52 Folate 22.1 ng/mL 08/27/19 16:52 TSH 0.720 uIU/mL (0.350-5.500) 08/27/19 16:52 PTH Intact 68.5 pg/mL (14.0-72.0) 08/27/19 16:52 Copper 1271 ug/L (810-1990) 08/27/19 16:52 Selenium 105 mcg/L (63-160) 08/27/19 16:52 Zinc 72 ug/dL (60-130) 08/27/19 16:52 Pre-albumin is low Vitamin A is low Vitamin D is low Objective - Labs CBC & Chem 7: 08/27/19 16:52 08/27/19 16:52
[2019-08-27 16:25] VITALS: BP 138/86; PULSE 87; TEMP 97.8; BMI 34.2
[2019-08-27 17:12] LABS: HCT 41.2 % (34.0-46.0); HGB 13.3 gm/dL (11.4-16.0); Hypochromasia Slight; MCH 30.8 pg (25.0-35.0); MCHC 32.4 g/dL (31.0-37.0); MCV 95.3 fL (80.0-100.0); Mean Platelet Volume 7.6; Platelet Count 243 k/uL (150-450); RBC 4.33 m/uL (3.80-5.40); RDW 12.9 % (11.5-15.5); WBC 5.6 k/uL (3.8-10.6)
[2019-08-27 17:23] LABS: INR 0.9 (<1.2); Partial Thromboplastin Time 24.6 sec (22.0-30.0); Prothrombin Time 9.8 sec (9.0-12.0)
[2019-08-28 00:18] LABS: Ferritin 123.2 ng/mL (10.0-291.0)
[2019-08-28 01:24] LABS: Hemoglobin A1C 5.2 % (4.0-6.0)
[2019-08-28 01:32] LABS: % Iron Saturation 21.74 (12.00-45.00); ALT 16 U/L (8-44); AST 26 U/L (13-35); African American GFR (CKD) 102.5 (60.0-200.0); Albumin/Globulin Ratio 2.25 (1.60-3.17); Alkaline Phosphatase 104 U/L (41-126); BUN/Creat Ratio 16.25 Ratio (12.00-20.00); Calcium 9.2 mg/dL (8.7-10.3); Carbon Dioxide 27.5 mmol/L (21.6-31.8); Chloride 107 mmol/L (96-109); Chol/HDL Ratio 2.21; Cholesterol 197 mg/dL (0-200); Glucose 103 mg/dL (70-110); Iron 75 ug/dL (50-170); LDL Cholesterol,Calculated 95.2 mg/dL (0.0-131.0); Magnesium 2.4 mg/dL (1.5-2.4); Non-African American GFR(CKD) 88.4 (60.0-200.0); Phosphorus 3.6 mg/dL (2.4-5.1); Potassium 3.5 mmol/L (3.5-5.5); Sodium 143 mmol/L (135-145); Total Bilirubin 0.5 mg/dL (0.3-1.2); Total Iron Binding Capacity 345 ug/dL (228-460); Total Protein 6.5 g/dL (6.2-8.2)
[2019-08-28 02:11] LABS: Folate, Serum 22.1 ng/mL
[2019-08-28 02:22] LABS: Vitamin B12 >4000.0 pg/mL (211-911)
[2019-08-28 14:52] LABS: Zinc, Serum 72 ug/dL (60-130)
[2019-08-29 07:46] LABS: Vitamin A 34 ug/dL (38-106)
[2019-08-29 10:46] LABS: Vit B1(Thiamine) 59 ug/L (38-122)
[2019-08-30 00:18] LABS: Selenium 105 mcg/L (63-160)
== END | disposition home or self-care (01) ==
LOC: BARWHC3 14:30
PROVIDERS: ATTEND Surgery Plastic and Reconstructive Surgery
DX: Z48.815 Encounter for surgical aftercare following surgery on the digestive system (principal); E66.01 Morbid (severe) obesity due to excess calories; K21.9 Gastro-esophageal reflux disease without esophagitis; F41.9 Anxiety disorder, unspecified; G47.33 Obstructive sleep apnea (adult) (pediatric); I11.9 Hypertensive heart disease without heart failure; K58.0 Irritable bowel syndrome with diarrhea; Z68.34 Body mass index [BMI] 34.0-34.9, adult; Z98.84 Bariatric surgery status; Z91.018 Allergy to other foods
CPT/HCPCS: 80053; 80061; 82306; 82525; 82607; 82728; 82746; 83036; 83540; 83550; 83735; 83970; 84100; 84134; 84255; 84425; 84443; 84590; 84630; 85027; 85610; 85730; 99211

== ENCOUNTER → 2020-05-12 | Outpatient (CLI) | payer BC, MEDICAID ==
[2020-05-12 14:05] VITALS: BP 158/101; PULSE 99; RESP 18; TEMP 99; BMI 31.6
--- NOTE | 2020-05-12 14:30 | P.PN ---
Subjective Progress Note Date: 05/12/20 DATE OF SERVICE: 05/12/2020 CHIEF COMPLAINT: Status post sleeve gastrectomy HISTORY OF PRESENT ILLNESS: Katelyn Finch is a 49-year-old female who is status post sleeve gastrectomy 05/05/2019. She is 1 year out. She comes in with new allergies and is pending new application integration specialist. She have developed peanut allergy. She has lost another 10+ pounds in 8 months. She is allergic to milk. She has fish allergy. She has lost over 50 pounds. She denies gastroesophageal reflux disease. At height of 5 feet 3 inches, her ideal body weight is 140 pounds. Her highest weight is 235 pounds, BMI 41.7. She comes in 179 pounds from 193 pounds, 8 months ago. She has lost 14 pounds in 8 months. Her body mass index is down from 41.7 to 31.7. Lifetime weight loss is 56 pounds. Her lifetime percent excess weight loss is 59 %. PHYSICAL EXAM: VITAL SIGNS: Height 5 foot 3 inches, weight 193 pounds. BMI 34.2 Vital Signs Temp 99 F 05/12/20 13:57 Pulse 99 05/12/20 13:57 Resp 18 05/12/20 13:57 BP 158/101 05/12/20 13:57 Pulse Ox GENERAL: Well-developed in no acute distress. HEENT: No scleral icterus. Extraocular movements grossly intact. Hears conversational speech. No nasal drainage. NECK: Supple without lymphadenopathy. CHEST: Nonlabored respirations with equal bilateral excursions. CARDIOVASCULAR: Regular rate and regular rhythm. Distal 2+ pulses. ABDOMEN: Soft, nontender. No hernia. MUSCULOSKELETAL: No clubbing, cyanosis. NEURO: No focal or lateralizing signs. Cranial nerves 2 through 12 grossly within normal limits. PSYCH: Appropriate affect. Alert and oriented to person, place and time. SKIN: Good skin turgor. Well perfused. LABS: Pre-albumin is low, Vitamin A is low, Vitamin D is low ASSESSMENT: 1. Morbid obesity due to excess calories 2. Body mass index of 41.7 to 31.7 3. Anxiety 4. Gastroesophageal reflux disease 5. Obstructive sleep apnea 6. Hypertensive heart disease 7. Food allergies 8. Diarrhea with irritable bowel syndrome. 9. Status post sleeve gastrectomy. PLAN: 1. Recommend application integration specialist assessment. 2. Recommend bariatric labs. Objective - Vital Signs Vital signs: Vital Signs Temp 99 F 05/12/20 13:57 Pulse 99 05/12/20 13:57 Resp 18 05/12/20 13:57 BP 158/101 05/12/20 13:57 Pulse Ox Intake & Output 05/11/20 05/12/20 05/12/20 18:59 06:59 18:59 Weight 81.193 kg - Labs CBC & Chem 7: 05/12/20 15:15 05/12/20 15:15
[2020-05-12 15:40] LABS: HCT 45.3 % (34.0-46.0); HGB 14.4 gm/dL (11.4-16.0); MCHC 31.8 g/dL (31.0-37.0); MCV 97.5 fL (80.0-100.0); Mean Platelet Volume 7.3; Platelet Count 241 k/uL (150-450); RBC 4.65 m/uL (3.80-5.40); RDW 12.7 % (11.5-15.5); WBC 4.7 k/uL (3.8-10.6)
[2020-05-12 16:27] LABS: INR 0.9 (<1.2); Partial Thromboplastin Time 23.6 sec (22.0-30.0); Prothrombin Time 9.7 sec (9.0-12.0)
[2020-05-13 01:36] LABS: Hemoglobin A1C 5.4 % (4.0-6.0)
[2020-05-13 02:14] LABS: Ferritin 145.5 ng/mL (10.0-291.0)
[2020-05-13 03:34] LABS: % Iron Saturation 17.91 (12.00-45.00); ALT 29 U/L (8-44); AST 30 U/L (13-35); African American GFR (CKD) 88.2 (60.0-200.0); Albumin/Globulin Ratio 1.91 (1.60-3.17); Alkaline Phosphatase 104 U/L (41-126); BUN/Creat Ratio 11.11 Ratio (12.00-20.00); Calcium 10.2 mg/dL (8.7-10.3); Carbon Dioxide 29.7 mmol/L (21.6-31.8); Chloride 108 mmol/L (96-109); Chol/HDL Ratio 2.14; Cholesterol 205 mg/dL (0-200); Folate, Serum >24.0 ng/mL; Globulin 2.3 g/dL (1.6-3.3); Glucose 102 mg/dL (70-110); Iron 65 ug/dL (50-170); LDL Cholesterol,Calculated 89.8 mg/dL (0.0-131.0); Magnesium 2.3 mg/dL (1.5-2.4); Non-African American GFR(CKD) 76.1 (60.0-200.0); Phosphorus 3.9 mg/dL (2.4-5.1); Potassium 4.2 mmol/L (3.5-5.5); Sodium 146 mmol/L (135-145); Total Bilirubin 0.7 mg/dL (0.3-1.2); Total Iron Binding Capacity 363 ug/dL (228-460); Total Protein 6.7 g/dL (6.2-8.2)
[2020-05-13 12:10] LABS: Zinc, Serum 58 ug/dL (60-130)
[2020-05-14 13:19] LABS: Vit B1(Thiamine) 50 ug/L (38-122)
[2020-05-14 14:27] LABS: Vitamin A 34 ug/dL (38-106)
[2020-05-16 01:21] LABS: Selenium 161 mcg/L (63-160)
== END | disposition home or self-care (01) ==
LOC: BARWHC3 13:21
PROVIDERS: ATTEND Surgery Plastic and Reconstructive Surgery
DX: Z48.815 Encounter for surgical aftercare following surgery on the digestive system (principal); E66.01 Morbid (severe) obesity due to excess calories; F41.9 Anxiety disorder, unspecified; K21.9 Gastro-esophageal reflux disease without esophagitis; G47.33 Obstructive sleep apnea (adult) (pediatric); I11.9 Hypertensive heart disease without heart failure; K58.0 Irritable bowel syndrome with diarrhea; Z68.31 Body mass index [BMI] 31.0-31.9, adult; Z98.84 Bariatric surgery status; Z91.018 Allergy to other foods; E89.1 Postprocedural hypoinsulinemia; D50.8 Other iron deficiency anemias; E44.0 Moderate protein-calorie malnutrition; E55.9 Vitamin D deficiency, unspecified; K74.1 Hepatic sclerosis; N19 Unspecified kidney failure
CPT/HCPCS: 36415; 80053; 80061; 82306; 82525; 82607; 82728; 82746; 83036; 83540; 83550; 83735; 83970; 84100; 84134; 84255; 84425; 84443; 84590; 84630; 85027; 85610; 85730; 99211